=== PATIENT | female | born 1935 | race Caucasian/White ===

== ENCOUNTER → 2016-07-06 | Outpatient (CLI) | payer MEDICARE, OTHER ==
[~2016-07-06] MED LIST: ASA325 MG PO; CALTRATE-600 W600 MG PO; CITRUCEL500 MG PO; COZAAR DPS50 MG PO; LACRI-LUBE3.5 GM OU; LUTEIN20 M1 PO; MIRALAX PACKET17 GM PO; OXY IR DPS5 MG PO; PRAVACHOL80 MG PO; PROTONIX40 MG PO; SENOKOT S1 TAB PO; SYNTHROID50 MCG PO; THERAPEUTIC MUL1 TAB PO; TYLENOL DPS325 MG PO; VITAMIN D31000 UNIT PO
== END | disposition home or self-care (01) ==
LOC: PTH.S 10:58
DX: Z01.818 Encounter for other preprocedural examination (principal); R94.31 Abnormal electrocardiogram [ECG] [EKG]; I51.7 Cardiomegaly; I10 Essential (primary) hypertension

== ENCOUNTER 2016-07-18 05:56 | Inpatient (IN) | payer MEDICARE, OTHER ==
[~2016-07-18] VITALS: Ht 160 cm; Wt 56.6 kg
--- NOTE | ~2016-07-18 | HP ---
ADMIT: 07/18/2016 RM/LOC: W.04 [facility] MR#: [id number] 2620 [facility] [address] [place] [id number] [place] [address] Pre-OP History and Physical SEX: F AGE: 81 : 1935 DATE OF SERVICE: CHIEF COMPLAINT: Knee pain. HISTORY OF PRESENT ILLNESS: The patient comes in, has known left knee arthritis, it has gotten progressively worse. She has had injections ,no improvement. Failed conservative care, now being admitted for left total knee arthroplasty. PAST MEDICAL HISTORY: Past medical problems include hypertension. SURGERY: Includes cataract, cholecystectomy, tonsillectomy, and hysterectomy. MEDICATIONS: Include: 1. Vitamins. 2. Levothyroxine. 3. Pravastatin. 4. Lovastatin. 5. Caltrate. ALLERGIES: NONE. SOCIAL HISTORY: Denies any significant tobacco or alcohol use. REVIEW OF SYSTEMS: Negative. PHYSICAL EXAMINATION: Healthy-appearing female. She has a valgus deformity to the left lower extremity. Range of motion 5 to 120 degrees. No pain in the hip. Leg is neurovascularly intact. No open sores or ulcers. DIAGNOSTIC DATA: X-rays AP, lateral, PA flexion view shows advanced left knee arthritis, valgus deformity. IMPRESSION: Advanced left knee valgus degenerative disease. PLAN: Talked about different options, failed conservative care. Plan on doing a left Sigma total knee arthroplasty. She is aware of risks, benefits, and options, agreed to proceed. Beka Hopper MD/ barron JOB #: [id number] CC: Beka Hopper, Attending Physician Rachid Young, Family Physician
--- NOTE | 2016-07-18 21:16 | OR ---
ADMIT: 07/18/2016 RM/LOC: 505 [facility] MR#: [id number] [facility]#: [id number] [address] [address] [employer] [place] [address] Operative/Delivery Room Report SEX: F AGE: 81 : 1935 SURGERY DATE: 07/18/2016 SURGEON: Beka Hopper MD ENGRAVER BLOCK: TERRY Chris PREOPERATIVE DIAGNOSIS: Left knee valgus degenerative joint disease. POSTOPERATIVE DIAGNOSIS: Left knee valgus degenerative joint disease. OPERATIONS: 1. Left total knee arthroplasty. 2. Intraarticular block. ANESTHESIA: Spinal. COMPLICATIONS: None. ESTIMATED BLOOD LOSS: 100 mL. TOTAL TOURNIQUET TIME: 44 minutes. COMPONENTS: 1. Size 4 narrow lug J and J femur. 2. Size 3 modular tibial tray. 3. A 35 mm oval patellar button. 4. An 8-mm posterior stabilized insert. DESCRIPTION OF OPERATION: The patient was taken to the operating room and the correct extremity was identified. The patient received a spinal anesthetic. The left lower extremity was prepped and draped in a standard fashion. The leg was exsanguinated and tourniquet inflated. An anterior incision was made and dissection was carried through the subcutaneous tissue. A medial parapatellar arthrotomy was performed. An appropriate medial release was performed. The patella was subluxed laterally. The infrapatellar fat pad was partially excised for exposure. At that point, the distal femur was opened up with a drill. We cut 12 mm off the distal femur in 5 degrees of valgus using an intramedullary guide. We then cut the tibia perpendicular to its long axis taking it flush with the affected side with an extramedullary guide. We then sized the femur to a size 4 and pinned this in appropriate external rotation aligning it with the epicondylar axis. We then made anterior, posterior, and chamfer cuts with the 4-in-1 cutting block. We opened up the joint space and removed the remaining posterior osteophytes, meniscus, and PCL ligament. We made our box cut centralizing the femoral component. The tibia was subluxed anteriorly, fit for a size 3 modular tibial tray, punched and drilled in appropriate external rotation. We then removed the remaining tibial osteophytes. We then cut the patella perpendicular to its long axis taking it flush with the lateral facet and fit it for a 35-mm oval patellar button restoring patellar height. We then extended the knee and opened the joint ADMIT: 07/18/2016 RM/LOC: 505 [facility] MR#: [id number] [address] [address] [employer] KAM[place] [address] [place] [id number] Operative/Delivery Room Report SEX: F AGE: 81 : 1935 space to obtain posterior hemostasis and perform a posterior block. We then put in trial components with an 8- mm insert. At that point, we had full extension, full flexion, patella tracked centrally and no lateral release was required. The knee was also stable to varus and valgus stress testing. All trial components were removed and all the bony surfaces were Waterpik'd clean. We then cemented the tibia, femur, and patella in a standard fashion, put in the trial 8 mm insert and held the knee in extension. While the cement hardened, we completed our intra-articular block. Once the cement was hard, we deflated the tourniquet, obtained hemostasis, irrigated out the wound thoroughly, removed the trial insert and put in the real insert. The knee was again found to be stable with full range of motion. No Hemovac drain was used. At that point, the extensor mechanism was closed with an interrupted 0- Vicryl suture with the knee in flexion. The subcutaneous tissue was closed 2-0 Vicryl and jerry were placed in the skin. Mepilex Border dressing was then applied. The patient was taken to the recovery room in stable condition with no complications. Beka Hopper MD/ barron JOB #: [id number] CC: Beka Hopper, Attending Physician Rachid Young, Family Physician
[2016-07-22] MEDS ORDERED: SYNTHROID50 MCG PO (20:19)
[2016-07-22] MEDS ORDERED: PRAVACHOL80 MG PO (20:19)
[2016-07-22] MEDS ORDERED: COZAAR DPS50 MG PO (20:19)
[2016-07-22] MEDS ORDERED: THERAPEUTIC MUL1 TAB PO (20:20)
[2016-07-22] MEDS ORDERED: VITAMIN D31000 UNIT PO (20:20)
[2016-07-22] MEDS ORDERED: CALTRATE-600 W600 MG PO (20:20)
[2016-07-22] MEDS ORDERED: CITRUCEL500 MG PO (20:21)
[2016-07-22] MEDS ORDERED: MIRALAX PACKET17 GM PO (20:22)
[2016-07-22] MEDS ORDERED: LUTEIN20 M1 PO (20:22)
[2016-07-22] MEDS ORDERED: LACRI-LUBE3.5 GM OU (20:22)
[2016-07-22] MEDS ORDERED: TYLENOL DPS325 MG PO (20:23)
[2016-07-22] MEDS ORDERED: ASA325 MG PO (20:23)
[2016-07-22] MEDS ORDERED: SENOKOT S1 TAB PO (20:23)
[2016-07-22] MEDS ORDERED: PROTONIX40 MG PO (20:23)
[2016-07-22] MEDS ORDERED: OXY IR DPS5 MG PO (20:24)
--- NOTE | 2016-08-09 16:15 | DS ---
ADMIT: 07/18/2016 RM/LOC: 505 [facility] MR#: [id number] [facility]#: [id number] 2620 [facility] [address] [place] [id number] [employer] [place] [address] General Discharge Summary SEX: F AGE: 81 : 1935 ADMISSION DATE: 07/18/2016 DISCHARGE DATE: 07/20/2016 REASON FOR ADMISSION: Elective left total knee arthroplasty after failing conservative care. PREOPERATIVE DIAGNOSIS: Left knee valgus degenerative joint disease. POSTOPERATIVE DIAGNOSIS: Left knee valgus degenerative joint disease. PROCEDURE PERFORMED: Left total knee arthroplasty. SURGEON: Beka Hopper MD CASE WORK AIDE: TERRY Chris ANESTHESIA: Spinal. COMPLICATIONS: None. ESTIMATED BLOOD LOSS: 100 mL. PAST MEDICAL PROBLEMS: Include hypertension. HOSPITAL COURSE: The patient was admitted on 07/18/2016 for elective left total knee arthroplasty done without any complications by Dr. Dorian Hopper. The patient tolerated the procedure well. Postoperatively, the patient did well with pain control, but did suffer from an episode of nausea and vomiting, which was attributed to Ultram. After stopping that medication, she did not have any other episodes. As expected, she did suffer from some acute blood- loss anemia. Her hemoglobin dropped to 10.6 on 07/20/2016, but she remained hemodynamically stable and did not require blood transfusion. By postoperative day #2, she was safe and stable and participating with physical therapy. She was ready for discharge home with plans for outpatient physical therapy. DISCHARGE MEDICATIONS: 1. Pravastatin 80 mg at bedtime. 2. Levothyroxine 50 mcg everyday. 3. Losartan 50 mg every day. 4. Caltrate D3, 600 mg/800 units twice daily. 5. Multivitamin every day. 6. Vitamin D3, 1000 units everyday. 7. Citrucel twice daily. 8. Lutein 25 mg every day. 9. MiraLax 17 g every day. 10.Refresh drops 2 drops each eye every day. ADMIT: 07/18/2016 RM/LOC: 505 [facility] MR#: [id number] [address] [address] [place] [address] General Discharge Summary SEX: F AGE: 81 : 1935 11.Aspirin 325 mg at bedtime for 30 days. 12.Protonix 40 mg at bedtime for 30 days. 13.Senokot 2 tablets twice daily as needed. 14.Tylenol 650 mg every 6 hours for 7 days then every 6 hours as needed for pain and fever. 15.Oxycodone IR 5 mg 1 to 2 tablets every 4 hours as needed for breakthrough pain. DISCHARGE INSTRUCTIONS: The patient was discharged home with plans for outpatient physical therapy per total knee arthroplasty protocol. Follow up in the orthopedic office in 2 weeks for wound check, in 6 weeks with x-ray. Follow up with primary care as directed. TERRY Chris / Beka Hopper MD / barron JOB #: [id number] CC: Beka Hopper MD, Attending Physician Rachid Young MD, Family Physician
== END 2016-07-20 15:46 | disposition home or self-care (01) | DRG 470 ==
LOC: 5MS 05:56 → WOR 05:56 → 5MS 11:03
PROVIDERS: ADMIT Orthopaedic Surgery
PROC: 0SRD0J9 Replacement of Left Knee Joint with Synthetic Substitute, Cemented, Open Approach (ICD-10-PCS; principal; 2016-07-18)
DX: M17.12 Unilateral primary osteoarthritis, left knee (principal); D62 Acute posthemorrhagic anemia; I10 Essential (primary) hypertension; E03.9 Hypothyroidism, unspecified